=== PATIENT | male | born 1995 | race Hispanic/Latino ===

== ENCOUNTER 2021-03-08 18:10 | Emergency (ER) | payer OTHER ==
[~2021-03-08] VITALS: Ht 170.2 cm; Wt 86.2 kg
[2021-03-08] MEDS ORDERED: ACETAMINOPHEN WITH CODEINE 1 TAB TAB PO ONE (21:00)
[2021-03-08] MEDS ORDERED: KETOROLAC 30MG VIAL (30MG/ML) IM ONE (21:00)
[2021-03-08] MEDS ORDERED: CEFTRIAXONE 1G VIAL IM ONE (21:00)
[2021-03-08] MEDS ORDERED: PENI500T2 PO (21:04)
[2021-03-08] MEDS ORDERED: IBUP-2070 PO (21:04)
[2021-03-08] MEDS ORDERED: ACET1TAB25 PO (21:04)
[2021-03-08] MEDS ORDERED: LIDOCAINE HCL-MPF 1% 2ML VIAL ONE (21:45)
[2021-03-08 21:52] VITALS: BP 135/79
== END 2021-03-08 22:18 | disposition home or self-care (01) ==
LOC: EDH 18:10
DX: K02.9 Dental caries, unspecified (principal); Z79.1 Long term (current) use of non-steroidal anti-inflammatories (NSAID)
CPT/HCPCS: 96372 ×2; 99284; J0696; J1885; J3490

== ENCOUNTER 2022-05-11 22:19 | Emergency (ER) | payer OTHER ==
[~2022-05-11] VITALS: Ht 172.7 cm; Wt 82.6 kg
[~2022-05-11 22:19] MED LIST: ACET-2079 PO; IBUP-2070 PO; PENI500T2 PO
[2022-05-11 22:20] VITALS: BP 127/64
[2022-05-11] MEDS ORDERED: CEFTRIAXONE 1G VIAL ONE (23:44)
[2022-05-11] MEDS ORDERED: AMOX1TAB16 PO (23:55)
[2022-05-12] MEDS ORDERED: CEFTRIAXONE 1G VIAL IM ONE
[2022-05-12] MEDS ORDERED: LIDOCAINE HCL 1% 20 ML VIAL IM SCH
== END 2022-05-12 00:18 | disposition home or self-care (01) ==
LOC: EDH 22:19
DX: L02.31 Cutaneous abscess of buttock (principal); L02.415 Cutaneous abscess of right lower limb
CPT/HCPCS: 99284; 96372 ×2; J0696

== ENCOUNTER 2024-01-17 09:39 | Emergency (ER) | payer SELFPAY ==
[~2024-01-17] VITALS: Ht 172.7 cm; Wt 72.6 kg
[~2024-01-17 09:39] MED LIST changes: +AMOX1TAB16 PO
--- NOTE | 2024-01-17 09:47 | ERN ---
General Chief Complaint: Suture/Staple Removal Stated Complaint: STAPLE REMOVAL Time Seen by MD: 09:42 Source: patient History of Present Illness Initial Comments PATIENT IS A 28-YEAR-OLD MALE COMING IN TO BE EVALUATED FOR STAPLE REMOVAL. PATIENT STATES THAT THE ROLO WERE PLACED ONE WEEK AGO ON THE RIGHT ANTERIOR PART OF OF HIS SCALP. NO FEVER NO CHILLS NO DRAINAGE FROM LESION. Allergies: Coded Allergies: No Known Allergies (Unverified Allergy, Unknown, 03/08/21) Home Meds Active Scripts Amoxicillin/Potassium Clav (Amox Tr-K Clv 875-125 mg Tab) 1 Each Tablet, 1 EACH PO BID for ABCESS for 10 Days, #20 TAB Prov:MAICOL MARTINEZ DNP 05/11/22 Acetaminophen with Codeine (Acetaminophen-Cod #3 Tablet) 1 Each Tablet, 1 EACH PO BID for 3 for 3 Days, #9 TAB Prov:KATIANA DYKES [employer] 03/08/21 Ibuprofen (Ibuprofen) 600 Mg Tablet, 600 MG PO TID PRN for PAIN for 5 Days, #15 TAB Prov:KATIANA DYKES [employer] 03/08/21 Penicillin V Potassium (Penicillin V Potassium) 500 Mg Tablet, 1 TAB PO QID for 10 Days, #40 TAB 0 Refills Prov:KATIANA DYKES NP 03/08/21 Past Medical History Past Medical History: No Pertinent History Past Surgical History: None ROS Dictation CONSTITUTIONAL: NO CHILLS, NO FEVER, NO WEAKNESS, NO DIAPHORESIS, NO MALAISE. HEAD/FACE: NO SIGNS OF TRAUMA. EENT: NO EYE PAIN, NO BLURRED VISION, NO TEARING, NO DOUBLE VISION, NO EAR PAIN, NO EAR DISCHARGE, NO NOSE PAIN, NO NASAL CONGESTION, NO THROAT PAIN, NO THROAT SWELLING, NO MOUTH PAIN. RESPIRATORY: NO COUGH, NO ORTHOPNEA, NO SOB, NO STRIDOR, NO WHEEZING. CARDIOVASCULAR: NO CHEST PAIN, NO EDEMA, NO PALPITATIONS, NO SYNCOPE. GASTROINTESTINAL/ABDOMINAL: NO ABDOMINAL PAIN, NO CONSTIPATION, NO DIARRHEA, NO NAUSEA, NO VOMITING. GENITOURINARY: NO ABNORMAL DISCHARGE, NO DYSURIA, NO FREQUENT URINATION, NO HEMATURIA. NO COMPLAINTS OF PAIN IN THE GENITALS. MUSCULOSKELETAL: NO BACK PAIN, NO GOUT, NO JOINT PAIN, NO JOINT SWELLING, NO MUSCLE PAIN, NO MUSCLE STIFFNESS, NO NECK PAIN. INTEGUMENTARY: NO CHANGE IN COLOR, NO CHANGE IN HAIR/NAILS, NO DRYNESS, NO LESION, NO LUMPS, NO RASH. NEUROLOGICAL/PSYCH: NO ANXIETY, NOT DEPRESSED, NO EMOTIONAL PROBLEM, NO HEADACHE, NO NUMBNESS, NO PRE-EXISTING DEFICIT, NO HISTORY OF SEIZURES, NO TREMORS, NO WEAKNESS. HEMATOLOGIC/LYMPHATIC: NOT ANEMIC, NO HISTORY OF BLOOD CLOTS, NO APPARENT BLEEDING, NO BRUISING, GLANDS NOT SWOLLEN. ALL SYSTEMS NEGATIVE, EXCEPT NOTED. Physical Exam Physical Exam Dictation VITAL SIGNS: REVIEWED. GENERAL APPEARANCE: ALERT, ORIENTED X3, NO ACUTE DISTRESS, OBESE. HEAD AND FACE: NON-TRAUMATIC. EYES: PERRL, PINK CONJUNCTIVAS, EYELID NO TRAUMA, ANTERIOR CHAMBER CLEAR. EARS: PINNAS INTACT AND NO SIGNS OF TRAUMA OR ERYTHEMA. EAR CANALS CLEAR AND NO DISCHARGE. TMS NO ERYTHEMA. NOSE: NO DISCHARGE, NO BLEEDING. OROPHARYNX: MOUTH NORMAL, TEETH NO CARIES, TONGUE PINK. PHARYNX CLEAR, NO ERYTHEMA. TONSILS NO EXUDATES, NO ABSCESSES NOTED. MUCOUS MEMBRANE MOIST. NECK: SUPPLE, NON-TENDER, NO THYROMEGALY, NO MASSES, NO JVD, NO BRUITS. BREAST: DEFERRED. CHEST: NO TENDERNESS, NO CREPITUS, NO PARADOXICAL MOVEMENT, NO RETRACTIONS. LUNGS: CLEAR, WELL-VENTILATED, SYMMETRIC, NO RALES, NO WHEEZING, NO RHONCHI, NO STRIDOR, GOOD BREATH SOUNDS BILATERALLY. HEART: REGULAR RATE, REGULAR RHYTHM, NO MURMUR, NO GALLOPS. VASCULAR: NO PERIPHERAL EDEMA. ABDOMEN: SOFT, POSITIVE BOWEL SOUNDS, NONDISTENDED, NO GUARDING, NONTENDER, NO REBOUND, NO MASSES NO HEPATOMEGALY, NO SPLENOMEGALY, NO IVEY'S SIGN, NO HERNIA S. RECTAL: DEFERRED. GENITAL: DEFERRED. NEUROLOGICAL: NORMAL SPEECH, GROSS MOTOR FUNCTION INTACT, GROSS SENSORY FUNCTION INTACT. MUSCULOSKELETAL: NECK NONTENDER, FULL RANGE OF MOTION, BACK NONTENDER, FULL RANGE OF MOTION. EXTREMITIES: NONTENDER, FULL RANGE OF MOTION. SKIN: COLOR PINK, DRY, NO TURGOR, NO RASH, THREE ROLO IN THE RIGHT ANTERIOR SCALP REGION LYMPHATICS: DEFERRED. Results Laboratory and Microbiology Labs Reviewed?: Yes MDM MDM: DIFFERENTIAL DIAGNOSIS: WOUND EVALUATION, STAPLE REMOVAL PATIENT IS A 28-YEAR-OLD MALE COMING IN TO BE EVALUATED FOR STAPLE REMOVAL. PATIENT STATES THAT HE HAD ROLO PLACED ONE WEEK AGO. HE HAS NOT NOTICED AN DRAINAGE ANY INCREASED TENDERNESS. ED Course Vital Signs Date Time Temp Pulse Resp B/P (MAP) Pulse Ox O2 Delivery O2 Flow Rate FiO2 01/17/24 09:40 97.9 87 16 107/65 98 Room Air 0 DX & DISP Disposition: Discharge Departure Impression: Primary Impression: Removal of staple Condition: Stable Additional Instructions: FOLLOW-UP WITH PRIMARY CARE PROVIDER IN 1 TO 2 DAYS. TAKE MEDICATIONS DIRECTED HERE IN THE EMERGENCY ROOM. OKAY TO CONTINUE HOME MEDICATIONS UNLESS OTHERWISE DISCUSSED DURING YOUR VISIT IN THE EMERGENCY ROOM TODAY. RETURN TO YOUR NEAREST EMERGENCY ROOM IF SYMPTOMS WORSEN OR IF THERE IS NO IMPROVEMENT. CALL 911 IF YOU NEED IMMEDIATE ASSISTANCE. TAKE TYLENOL [id number] NEEDED AND IF NO CONTRAINDICATIONS ARE PRESENT. INCREASE ORAL HYDRATION. A WOUND CULTURE OR URINE CULTURE WAS ORDERED HERE IN THE EMERGENCY ROOM DEPARTMENT PLEASE FOLLOW-UP WITH PRIMARY CARE PROVIDER AND ADVISE THEM TO GET REPEAT PORTS FROM OUR FACILITY. IF YOU HAD ANY MAYRA WRAP/SPLINTS THAT WERE APPLIED HERE, PLEASE DO NOT REMOVE THEM UNTIL YOU SEE YOUR PRIMARY CARE OR SPECIALTY. REFERRALS: Referrals: NONE (PCP) MICK KEITH MD Time of Disposition: 09:47 ROSMERY SANTIAGO MD Jan 17, 2024 09:47
[2024-01-17 10:09] VITALS: BP 112/62; PULSE 84; RESP 16; TEMP 98.2; O2SAT 98
== END 2024-01-17 10:06 | disposition home or self-care (01) ==
LOC: EDH 09:39
DX: S01.01XD Laceration without foreign body of scalp, subsequent encounter (principal); Z48.02 Encounter for removal of sutures; Z79.899 Other long term (current) drug therapy; X58.XXXD Exposure to other specified factors, subsequent encounter
CPT/HCPCS: 99282